=== PATIENT | male | born 1960 | race African-American/Black ===

== ENCOUNTER 2018-10-17 09:13 | Observation (INO) | payer BC ==
--- NOTE | 2018-10-12 13:49 | GHP ---
DATE OF ADMISSION: 10/17/2018 DATE OF SURGERY: He will be an a.m. admission for surgery on October 17, 2018. PROBLEM: Right knee degenerative arthritis. HISTORY OF PRESENT ILLNESS: The patient is a 58-year-old man admitted for a right total knee arthrop lasty. He had a right knee ACL reconstruction in 1989 secondary to a basketball injury. Over the pa st 5 years, he has had progressive increase in pain and swelling in his right knee. He has advanced degenerative arthritis with significant varus deformity. The knee is very painful and it limits his activities. He is admitted for a right total knee arthroplasty. PAST MEDICAL HISTORY: He developed a pulmonary embolism in 2007, after lumbar spine surgery. He has an inferior vena caval filter. No history of heart disease, stents, hepatitis, MRSA staph infection s, or bleeding problems. He has sleep apnea and uses a CPAP machine. CURRENT MEDICATIONS: None. DRUG ALLERGIES: None. LATEX ALLERGY: None. SOCIAL HISTORY: The patient is . He does not smoke cigarettes. Occasionally drinks alcohol. He works in sales. FAMILY HISTORY: Positive for cancer. PHYSICAL EXAMINATION: VITAL SIGNS: Height 6 feet, weight 262 pounds. BMI 35.5. EYES: Conjunctiva e and sclerae are clear. Pupils round and reactive. MOUTH: Good oral hygiene. No loose teeth. CH EST: Clear. HEART: Regular rhythm. No murmurs. EXTREMITIES: Pertinent findings are limited to h is right knee. He has a medial incision in the supracondylar region, a lateral incision in the supra condylar region, and an anterior medial incision. A small effusion is present. He lacks 10 degrees of full extension and flexes to 105 degrees. His ligaments are stable. He has varus alignment. IMPRESSION ON ADMISSION: 1. Right knee advanced degenerative arthritis. Status post ACL reconstruction. 2. History of pulmonary embolism in 2007. PLAN: He will undergo a right total knee arthroplasty. The surgery has been described to him, inclu ding the risks, complications, expectations, and recovery time. I have stressed the importance of po stoperative physical therapy. I have advised him that about 85% of people are very happy with the re sults of a total knee replacement. A small percentage of people are not happy because of persistent pain, knee stiffness, or persistent swelling. He is at a higher risk for DVT. He still has an indwe lling inferior vena caval filter. I will be treating him with Lovenox for 28 days after surgery. Scottie rodriguez his questions have been answered, and he consents to surgery. Copy requested to: SHANE Park /[id number]/MODL
[~2018-10-17 09:13] MED LIST: POVIDONE-IODINE 20 ML in SODIUM CL IRRIG SOLUTION 500 ML IRR ONE; ROPIVACAINE 0.2% 80 MG, EPINEPHrine 0.2 MG, KETOROLAC TROMETHAMINE 30 MG in SYRINGE 0 ML IU ONE; TRANEXAMIC ACID 2,000 MG in NS 100 ML IV ONE; TRANEXAMIC ACID 3,000 MG in NS (SYRINGE) 50 ML IRR ONE
[2018-10-17] MEDS ORDERED: ceFAZolin 2 GM/DEXTROSE 100 ML IV ONE (09:59)
[2018-10-17] MEDS ORDERED: ONDANSETRON 4 MG/2 ML VIAL IVP ONE (09:59)
[2018-10-17] MEDS ORDERED: ACETAMINOPHEN 325 MG TAB PO ONE (09:59)
[2018-10-17] MEDS ORDERED: GABAPENTIN 300 MG CAP PO ONE (09:59)
[2018-10-17] MEDS ORDERED: FAMOTIDINE 20 MG TAB PO ONE (09:59)
[2018-10-17] MEDS ORDERED: DEXAMETHASONE 4 MG/ML VIAL IVP ONE (09:59)
[2018-10-17] MEDS ORDERED: LR 1,000 ML IV ONE (10:25)
[2018-10-17] MEDS ORDERED: PROPOFOL/EMULSION 500 MG/50 ML BOTTLE IV ONE (10:56)
[2018-10-17] MEDS ORDERED: LIDOCAINE 2% 5 ML SDV ONE (10:57)
--- NOTE | 2018-10-17 11:56 | PDANEPAE ---
ANE History of Present Illness right TKA ANE Past Medical History - Cardiovascular History Hx Hypertension: No Hx Arrhythmias: No Hx Chest Pain: No Hx Coronary Artery / Peripheral Vascular Disease: No Hx CHF / Valvular Disease: No Hx Palpitations: No - Pulmonary History Hx COPD: No Hx Asthma/Reactive Airway Disease: No Hx Recent Upper Respiratory Infection: No Hx Oxygen in Use at Home: No Hx Sleep Apnea: Yes Sleep Apnea Screening Result - Last Documented: Positive Pulmonary History Comment: PE FOLLOWING 2ND BACK SURGERY - ANTICOAG [place] - 2007. SLEEP APNEA - W/CPAP - INSTRUCTED TO BRING CPAP - Neurologic History Hx Cerebrovascular Accident: No Hx Seizures: No Hx Dementia: No - Endocrine History Hx Diabetes: No - Renal History Hx Renal Disorders: No - Liver History Hx Hepatic Disorders: No - Neurological & Psychiatric Hx Hx Neurological and Psychiatric Disorders: No - Cancer History Hx Cancer: No - Congenital Disorder History Hx Congenital Disorders: No - GI History Hx Gastrointestinal Disorders: Yes Gastrointestinal History Comment: ACID REFLUX IN PAST - Other Health History Other Health History: NEG - Chronic Pain History Chronic Pain: Yes (R KNEE) - Surgical History Prior Surgeries: LUMBAR - DAVION LAMINECTOMY X2. ACL REPAIR ANE Review of Systems Review of Systems: - Exercise capacity METS (RN): 4 METS ANE Patient History - Allergies Allergies/Adverse Reactions: No Known Allergies Allergy (Verified 10/10/18 11:05) - Home Medications Home medications: home medication list seen and reviewed Home Medications: Herbals/Supplements -Info Only 10/11/18 [Last Taken 10/13/18] - NPO status NPO Since - Liquids (Date): 10/17/18 NPO Since - Liquids (Time): 07:30 NPO Since - Solids (Date): 10/16/18 NPO Since - Solids (Time): 20:30 - Anes Hx Anes Hx: no prior problems - Smoking Hx Smoking Status: Never smoked - Family Anes Hx Family Hx Anesthesia Complications: NEG ANE Labs/Vital Signs - Vital Signs Blood Pressure: 126/90 Heart Rate: 64 Respiratory Rate: 18 O2 Sat (%): 95 Height: 182.88 cm Weight: 117.934 kg ANE Physical Exam - Airway Neck exam: FROM Mallampati Score: Class 1 Mouth exam: normal dental/mouth exam - Pulmonary Pulmonary: no respiratory distress - Cardiovascular Cardiovascular: regular rate and rhythym - ASA Status ASA Status: III ANE Anesthesia Plan Anesthesia Plan: spinal Regional Anesthesia: continuous NB, adductor canal FNB
--- NOTE | 2018-10-17 12:00 | PDHPUP ---
History & Physical Update H&P update statement: This history and physical update is based on an assessment of the patient which was completed after admission or registration (within 24 hours), but prior to the surgery/procedure. H&P update: H&P reviewed & patient examined
[2018-10-17] MEDS ORDERED: TRANEXAMIC ACID 3,000 MG/50 ML BAG IRR ONE (12:38)
[2018-10-17] MEDS ORDERED: VANCOMYCIN 1 GM VIAL ONE (12:38)
[2018-10-17] MEDS ORDERED: ceFAZolin 1 GM/5 ML SYR ONE (12:43)
--- NOTE | 2018-10-17 12:45 | POSTANESTH ---
Post Anesthetic Evaluation Cardiovascular Status: Normal, Stable Respiratory Status: Normal, Stable Level of Consciousness/Mental Status: Can Participate in Eval, Mildly Sleepy, Arousable Pain Control: Adequate, Prn Tx Ordered Nausea/Vomiting Control: Adequate, Prn Tx Ordered Complications Possibly Related to Anesthesia: None Noted
[2018-10-17] MEDS ORDERED: MIDAZOLAM 2 MG/2 ML VIAL ONE (12:47)
[2018-10-17] MEDS ORDERED: BUPIVACAINE/DEXTROSE 7.5MG/ML 2 ML SPINAL AMP SP ONE (12:48)
[2018-10-17] MEDS ORDERED: MIDAZOLAM 2 MG/2 ML VIAL IVP ONE (12:49)
[2018-10-17] MEDS ORDERED: ONDANSETRON 4 MG/2 ML VIAL ONE (13:22)
[2018-10-17] MEDS ORDERED: fentaNYL 100 MCG/2 ML INJ ONE ×4 (13:22→16:14)
[2018-10-17] MEDS ORDERED: DEXAMETHASONE 4 MG/ML VIAL ONE (13:22)
[2018-10-17] MEDS ORDERED: ROPIVACAINE HCL 150 MG/30 ML INJ ONE (13:28)
[2018-10-17] MEDS ORDERED: oxyCODONE IR 5 MG TAB PO PRN ×2 (14:03→15:21)
[2018-10-17] MEDS ORDERED: ACETAMINOPHEN 500 MG TAB PO PRN ×2 (14:03→15:21)
[2018-10-17] MEDS ORDERED: fentaNYL 100 MCG/2 ML INJ IVP PRN (14:03)
[2018-10-17] MEDS ORDERED: METOCLOPRAMIDE 10 MG/2 ML VIAL IVP PRN ×3 (14:03→15:39)
[2018-10-17] MEDS ORDERED: ONDANSETRON 4 MG/2 ML VIAL IVP PRN ×3 (14:03→15:39)
[2018-10-17] MEDS ORDERED: ALBUTEROL 3 ML DEYVIAL IH PRN ×2 (14:03→15:21)
[2018-10-17] MEDS ORDERED: LR 500 ML IV PRN ×2 (14:03→15:21)
[2018-10-17] MEDS ORDERED: NALOXONE HCL 0.4 MG/ML INJ IVP PRN ×2 (14:03→15:21)
[2018-10-17] MEDS ORDERED: PROMETHAZINE HCL 25 MG/ML INJ IVP PRN ×3 (14:03→15:39)
[2018-10-17] MEDS ORDERED: HYDROCODONE/APAP 5/325 TAB PO PRN ×2 (14:03→15:21)
[2018-10-17] MEDS ORDERED: HYDROmorphONE/DILAUDID 2 MG/ML INJ ONE ×2 (14:30→16:04)
[2018-10-17] MEDS ORDERED: HYDROmorphONE/DILAUDID 2 MG/ML INJ IVP PRN (15:21)
--- NOTE | 2018-10-17 15:26 | POSTOPPROG ---
Post Op Note Date of Operation: 10/17/18 Surgeon: Rory Beltrán Recycling Assistant: Beau Anesthesiologist: Katty Anesthesia: GET(General Endotracheal) Post-op Diagnosis: 1. Right knee severe degenerative arthritis.2. Right knee retained hardw Procedure: 1. Right total knee arthroplasty. 2. Hardware removal from the right knee. Inf/Abcess present in the surg proc area at time of surgery?: No EBL: 50-100 (Adductor canal block in PACU with indwelling catheter.)
[2018-10-17] MEDS ORDERED: DIPHENOXYLATE/ATROPINE LOMOTIL 1 TAB PO PRN (15:39)
[2018-10-17] MEDS ORDERED: POLYETHYLENE GLYCOL 3350 17 GM PKT PO PRN (15:39)
[2018-10-17] MEDS ORDERED: diphenhydrAMINE 25 MG CAP PO PRN (15:39)
[2018-10-17] MEDS ORDERED: CYCLOBENZAPRINE 10 MG TAB PO PRN (15:39)
[2018-10-17] MEDS ORDERED: MAGNESIUM HYDROXIDE 30 ML UDCUP PO PRN (15:39)
[2018-10-17] MEDS ORDERED: TEMAZEPAM 15 MG CAP PO PRN (15:39)
[2018-10-17] MEDS ORDERED: NS 500 ML IV PRN (15:39)
[2018-10-17] MEDS ORDERED: traMADol 50 MG TAB PO PRN (15:39)
[2018-10-17] MEDS ORDERED: LACTULOSE 20 GM/30 ML UDCUP PO PRN (15:39)
[2018-10-17] MEDS ORDERED: BISACODYL 10 MG SUPP PR PRN (15:39)
[2018-10-17] MEDS ORDERED: ONDANSETRON DISINTEGRATING 4 MG TAB PO PRN (15:39)
[2018-10-17] MEDS ORDERED: PROMETHAZINE HCL 25 MG SUPPR PR PRN (15:39)
[2018-10-17] MEDS ORDERED: LR 1,000 ML IV SCH (16:00)
[2018-10-17] MEDS: fentaNYL 100 MCG/2 ML INJ IVP PRN ×2 (16:17→16:25)
[2018-10-17] MEDS: HYDROmorphONE/DILAUDID 2 MG/ML INJ IVP PRN ×4 (16:36→17:09)
--- NOTE | 2018-10-17 17:01 | GOP ---
DATE OF OPERATION: 10/17/2018 SURGEON: Rory Beltrán MD CONCRETE POURING SUPERVISOR: Zan Ortiz, [facility], and Efra Tran, PAC ANESTHESIA: Attempted spinal anesthesia, followed by general anesthesia and an adductor canal block. PREOPERATIVE DIAGNOSIS: 1. Right knee severe degenerative arthritis. 2. Right knee retained hardware, secondary to anterior cruciate ligament reconstruction in 1989. POSTOPERATIVE DIAGNOSIS: 1. Right knee severe degenerative arthritis. 2. Right knee retained hardware, secondary to anterior cruciate ligament reconstruction in 1989. PROCEDURE PERFORMED: 1. Right knee total knee arthroplasty, cemented, Mariscal and Nephew Journey II, posterior stabilized. 2. Hardware removal from the right tibia. FINDINGS: DESCRIPTION OF PROCEDURE: The patient was given 2 g of IV Ancef preoperatively within 60 minutes of surgery. He also received 2000 mg of IV tranexamic acid preoperatively. He was placed on the operat ing room table and Dr. Alaniz attempted a spinal anesthetic. This was unsuccessful. He was placed supine and given general anesthesia. A Angulo catheter was not used. He wore a MUNA stocking and SCD on the nonoperative leg. A bolster was placed under the right hip to prevent excessive external rot ation. He had a very bulky muscular heavy leg. His right lower extremity was prepped with ChloraPre p from the upper thigh tourniquet to the tips of the toes. It was draped free using sterile sheets, stockinette, and Ioban plastic adhesive drape. The lower leg was wrapped with a compressive Coban. His leg was exsanguinated with elevation and a 6-inch compressive wrap, and the pneumatic tourniquet was inflated to 300 mmHg. The [employer] Organization time-out was performed to verify the correct patient identity and the c orrect surgical side and site. The [place] time-out was also performed. The DeMayo leg holding device was sterilely attached to the operating room table and used throughout the procedure to help position the knee. The patient had a pre-existing medial incision that was abo ut 4 inches long. I incorporated that in a medial parapatellar surgical incision. Subcutaneous tiss ues were sharply divided and hemostasis was obtained using electrocautery. The capsule and synovium were opened in medial parapatellar fashion. There was some distal scarring from his previous open pr ocedure. Very extensive degenerative changes were present in all 3 compartments. He had a very bulk y leg with a lot of deformity and a lot of scar tissue. This made exposure difficult. I exposed the anteromedial cortex of the tibia. I used a rongeur and was able to locate the head of the ACL fixat ion screw in the tibia. This was removed. The medial capsule and periosteum were elevated off the r im of the medial tibial plateau all the way around to the posteromedial corner. I released his media l collateral ligament enough to balance the medial side of the knee. In order to improve exposure, the patella was prepared first. The original thickness of the patella was measured. He had a lot of osteophyte formation around the periphery of the patella. The osteoph ytes were removed with a rongeur. I cut a flat surface on the back of the patella. He was sized for a 41 mm round resurfacing component. I removed enough bone from the patella, such that the remainin g bone, plus the thickness of the patellar component recreated the original thickness of the patella. The composite thickness was 25 mm. The intramedullary alignment guide system was used to set up the distal femoral cut. The distal femu r was cut in 5 degrees of valgus. Because of a 10 degree preoperative flexion contracture, I made a +2 mm cut on the distal femur. The sizing jig was used to determine proper femoral sizing. He was a true size 8 without a shift. The 5-in-1 cutting block was applied, and the anterior and posterior c ondylar cuts and chamfer cuts were made. The final jig was used to remove the central portion of the distal femur to accommodate the posterior stabilized femoral component. I removed the osteophytes f rom around the periphery of the femoral condyles. I was careful to determine proper rotation by refe rencing off Whitesides line and other bony landmarks. Each cut was checked for accuracy. The femur was sized for a size 8 posterior stabilized component. Next, the tibia was prepared. The proximal tibial cut was made using the extramedullary alignment gu lucy system. The cut was made in a few degrees of posterior slope. I was careful to achieve proper v arus valgus alignment and proper rotation. The posterior compartment was cleared of meniscal remnant s. Large osteophytes were removed. Were removed from the back of his femoral condyles. Both the fl exion and extension gaps were tight. I went ahead and cut 2 additional millimeters off the proximal tibia. At this point, the flexion and extension gaps were equal and balanced. Tibia was sized for a size 7 component. With the trial components in place, I selected an [address] abilized tibial insert. The knee came to full extension and flexed to 125 degrees. His collateral l igaments were stable and balanced in 90 degrees of flexion and 5 degrees of flexion. The trial mendez lar button was applied, and patellar tracking was checked. Tracking was excellent without digital pr essure. 40 mL of the joint anesthetic cocktail was injected into the posterior capsule, the quadriceps muscle and tendon areas, and the subcutaneous tissues around the skin edges. The surfaces were prepared for cementing. They were carefully cleaned with the pulsating lavage irri gation and thoroughly dried. The CarboJet device was used to blow dry the cancellous surfaces. A do uble batch of high viscosity methylmethacrylate cement with 2 g of powdered vancomycin added was mixe d. While it was still in a doughy state, all 3 components were cemented in place. Excess cement was removed before it hardened. The 11 mm trial tibial insert was re-tried and was the proper thickness . The actual component was inserted and locked into place. His knee was thoroughly irrigated 1 stephanie l time with a dilute Betadine solution. The tourniquet was deflated and the total tourniquet time was 1 hour and 27 minutes. Tourniquet time was longer than usual because of the difficult exposure. It was also difficult getting proper soft tissue balance. The knee was irrigated was 50 cc of tranexamic acid solution. The vastus medialis portion of the extensor mechanism was repaired with several interrupted figure-of -eight #2 FiberWire sutures. The capsule and synovium were closed first with multiple interrupted fi [id number]-[id number] 0 PDS sutures, followed by a running #2 barbed Ethicon Stratafix PDO suture. The subcu taneous tissues were closed with a running 0 barbed Ethicon Stratafix Monoderm suture. The skin was closed with a running 3-0 barbed Ethicon Stratafix Monoderm subcuticular suture. The skin was sealed with half-inch Steri-Strips. The wound was covered with a large sterile Mepilex waterproof dressing and a 6-inch compressive wrap. A long-leg MUNA stocking and SCD were applied. I applied followed by the cooling device. The patient wore a stocking and SCD on the opposite leg during the procedure. The sacral Mepilex dressing was applied. I used a size 8 cemented Mariscal and Nephew Oxinium posterior stabilized femoral component, a size 7 ce mented tibial base plate, an 11 mm posterior stabilized tibial insert, and a 41 mm cemented round all -polyethylene resurfacing patellar component. The estimated blood loss following deflation of the tourniquet was about 100 cc. The sponge and needle count was correct on 2 occasions. He was awakened from anesthesia, transferred to his hospital [facility], and taken to PACU in satisfactor y condition. There were no recognized intraoperative complications. In the PACU for additional post operative pain control, Dr. Alaniz performed an adductor canal block with an indwelling catheter. The patient has a previous history of pulmonary embolism. He will be treated as a high risk and will receive Lovenox daily for 28 days following surgery. This increases the risk for postoperative knee bleeding. Zan Ortiz and Loc Tran acted as surgical assistants. Their assistance was a medical necess ity for safe completion of the procedure. Copy requested to: Dr. Perico Damon, [place] /[id number]/MODL
[2018-10-17] MEDS ORDERED: LABETALOL HCL 20 MG/4 ML INJ IVP ONE ×2 (17:18→18:00)
[2018-10-17] MEDS ORDERED: LABETALOL HCL 5 MG/ML 20 ML MDV ONE (17:22)
--- NOTE | 2018-10-17 18:32 | CPEKG ---
Test Reason : OPEN Blood Pressure : / mmHG Vent. Rate : 088 BPM Atrial Rate : 090 BPM P-R Int : 200 ms QRS Dur : 151 ms QT Int : 407 ms P-R-T Axes : -13 017 149 degrees QTc Int : 493 ms Sinus rhythm Left bundle branch block Confirmed by Lindsay Reyes ([id number]) on 10/17/2018 6:31:13 PM Referred By: Confirmed By:Lindsay Reyes
[2018-10-17] MEDS: SENNOSIDES/DOCUSATE SODIUM TAB PO SCH (19:54)
[2018-10-17] MEDS: oxyCODONE IR 5 MG TAB PO PRN ×2 (19:54→23:30)
[2018-10-17] MEDS: FAMOTIDINE 20 MG TAB PO SCH (19:54)
[2018-10-17] MEDS: KETOROLAC 15 MG/1 ML SDV IVP SCH ×2 (20:01→23:30)
[2018-10-17] MEDS: ACETAMINOPHEN 325 MG TAB PO SCH ×2 (20:01→23:30)
[2018-10-17] MEDS: ceFAZolin 2 GM/DEXTROSE 100 ML IV SCH (20:55)
[2018-10-18] MEDS: oxyCODONE IR 5 MG TAB PO PRN ×3 (00:26→08:47)
[2018-10-18] MEDS: ceFAZolin 2 GM/DEXTROSE 100 ML IV SCH (04:46)
[2018-10-18] MEDS: ACETAMINOPHEN 325 MG TAB PO SCH ×2 (04:50→12:46)
[2018-10-18] MEDS: KETOROLAC 15 MG/1 ML SDV IVP SCH ×2 (04:51→12:45)
--- NOTE | 2018-10-18 07:20 | SOAPPROG ---
SOAP Progress Note Assessment/Plan: Assessment: POD #1. Awake, alert, afebrile. Dressing clean and dry. Mild pain. H/H ok. VSS. Post op films ok. Plan: PT OT today. D/c to home later today. 10/18/18 07:18 Objective: Vital Signs Temp Pulse Resp BP Pulse Ox 36.6 C 80 18 135/74 H 96 10/18/18 04:00 10/18/18 04:00 10/18/18 04:00 10/18/18 04:00 10/18/18 04:00 Laboratory Results 10/18/18 04:43 10/17/18 10/18/18 10/19/18 05:59 05:59 05:59 Intake Total 2340 Output Total 900 Balance 1440 ICD10 Worksheet Patient Problems: Problems Problem Status Onset Osteoarthritis of right knee Acute
--- NOTE | 2018-10-18 08:44 | GDS ---
ADMISSION DIAGNOSIS: Severe right knee osteoarthritis. DISCHARGE DIAGNOSIS: Severe right knee osteoarthritis. OPERATIONS PERFORMED: Right total knee arthroplasty. COMPLICATIONS: None. CONDITION ON DISCHARGE: Improved. DESCRIPTION OF HOSPITAL COURSE: The patient was admitted to the hospital on the day of surgery. His admission white blood cell count was 5.77. His hemoglobin was 14.2 and hematocrit was 44.3. The under a failed attempt at a Marcaine spinal, he received general anesthesia and underwent a ri ght total knee arthroplasty. A Angulo catheter was not used. He was treated with multimodal DVT prop hylaxis including MUNA stockings, SCDs, and early mobilization. On the 1st postoperative day, the patient's H and H were 12.1 and 38.0. He did not require any blood transfusion. He was seen by Physical therapy and made good progress with ambulation and knee range of motion exercises. By the time of discharge, the patient was independent with his walker, afebrile, and his dressing was clean and dry. DISPOSITION: The patient is discharged to his home. He will go directly to outpatient pulmonary physical therapist apy. He has a prescription for Lovenox x28 days. He will be treated more aggressively because of hi s previous history of DVT, PE. The patient also has prescriptions for tramadol, Celebrex, and oxycod one. MUNA stockings x1 week. Zero Knee while in bed. He has a followup appointment in the office on October 30. He is to call the office sooner if he has any problems or questions. Copy requested to: PCP lorelei listed in [employer] /[id number]/MODL
[2018-10-18] MEDS: SENNOSIDES/DOCUSATE SODIUM TAB PO SCH (08:47)
[2018-10-18] MEDS: FAMOTIDINE 20 MG TAB PO SCH (08:49)
[2018-10-18] MEDS ORDERED: ENOXAPARIN 40 MG/0.4 ML SYR SC SCH (09:00)
[2018-10-18] MEDS ORDERED: FERROUS SULFATE 140 MG TAB.ER PO SCH (09:00)
[2018-10-18] MEDS ORDERED: ROPIVACAINE HCL 150 MG/30 ML INJ ONE (09:15)
--- NOTE | 2018-10-18 11:24 | ASMTLACE ---
LACE Length of stay for Answers: 2 days current admission Acuity / Level of Answers: Yes Care: Did the patient have an inpatient admission? Comorbidities - select Answers: Opioid dependence all that apply / Chronic pain # of Emergency department Answers: 0 visits in the last 6 months Score: 9 Date Signed: 10/18/2018 11:23 AM Electronically Signed By:ANTONI Rodriguez
--- NOTE | 2018-10-18 11:25 | ASMTCMCOM ---
CM Note CM Note Notes: Pt had planned OA of knee, resides with spouse. PT rec home/outpatient. rec outpatient PT. No CM d/c needs identified. Date Signed: 10/18/2018 11:25 AM Electronically Signed By:ANTONI Rodriguez
[2018-10-18] MEDS ORDERED: LIPID EMULSION 20% 100 ML IV PRN (11:37)
--- NOTE | 2018-10-18 11:42 | PDPAINCON ---
Pain Management Consultation Patient referred by : Jerel - Subjective Pain is: under control (Pt states block wore off around 2 am last night. Could feel noticeable difference in pain, especially with movement. Pt doing well otherwise and pleased with care.) Activity: able to ambulate (with walker), participating in PT - Objective Technique: continuous peripheral nerve block Site: femoral (Adductor canal) Catheter site: clean, dry, intact, no erythema/edema/exudate Sensory and motor exam: block has resolved, no apparent ill effects Vital signs: stable - Assessment/Plan Assessment/Plan: other (Block wore off at around 2 am. Bolused AC catheter with 30 cc 0.5% ropivicaine and removed catheter. Pt overall pleased with care. )
[2018-10-18 12:17] VITALS: BP 144/78
== END 2018-10-18 15:04 | disposition home or self-care (01) ==
LOC: F3N 09:13 → INTOOBSV 09:13 → F3N 19:21
PROVIDERS: ADMIT Orthopaedic Surgery; ATTEND Orthopaedic Surgery
PROC: 0QPG04Z Removal of Internal Fixation Device from Right Tibia, Open Approach (ICD-10-PCS; 2018-10-17)
PROC: 0SRC0J9 Replacement of Right Knee Joint with Synthetic Substitute, Cemented, Open Approach (ICD-10-PCS; principal; 2018-10-17 11:15)
DX: M17.11 Unilateral primary osteoarthritis, right knee (principal); M21.161 Varus deformity, not elsewhere classified, right knee; G47.33 Obstructive sleep apnea (adult) (pediatric); E66.01 Morbid (severe) obesity due to excess calories; Z86.711 Personal history of pulmonary embolism; Z98.890 Other specified postprocedural states; Z87.828 Personal history of other (healed) physical injury and trauma
CPT/HCPCS: 27447; 73560; 77073; 93005; 97110; 97116; 97161; 97165; 97535; G0378; C1713; J0171; J0690; J1100; J1170; J1650; J1885; J2250; J2405; J2704; J2795; J3010; J3370

== ENCOUNTER 2018-12-20 08:36 | Day surgery (SDC) | payer BC ==
--- NOTE | 2018-12-14 10:29 | GHP ---
He will be an outpatient at [facility] on Thursday December 20, 2018. PROBLEM: Status post right total knee arthroplasty with failure to regain flexion. HISTORY OF PRESENT ILLNESS: The patient is a 58-year-old man on whom I did a right total knee arthro plasty on October 17, 2018. He has failed to regain satisfactory knee flexion with physical therapy . He is admitted for closed manipulation of his right total knee. There are no changes in the rest of his history and Physical. PHYSICAL EXAMINATION: HEART: Regular rhythm. No murmurs. LUNGS: Clear. EXTREMITIES: Exam of hi s knee shows his wound is healed. Good alignment. Moderate residual swelling. He has full extensio n and about 90 degrees of flexion. He has a fairly soft endpoint. IMPRESSION ON ADMISSION: 1. Eight weeks status post right total knee arthroplasty with postoperative stiffness. 2. History of pulmonary embolism in 2007. PLAN: He will undergo closed manipulation of his right total knee. The surgery has been described t o him, including the risks, complications, expectations, and recovery time. I have advised him of th e small risk of fracture of a bone or rupture of a tendon or muscle. All his questions have been ans wered. I have also offered him the option of just continuing physical therapy. He consents to surge ry. Copy requested to: Maria Gu[place]upe [place] /[id number]/MODL
[2018-12-20] MEDS ORDERED: ACETAMINOPHEN 500 MG TAB PO ONE (08:49)
[2018-12-20] MEDS ORDERED: LR 1,000 ML IV ONE (08:49)
[2018-12-20] MEDS ORDERED: LIDOCAINE 1% 2 ML INJ ID PRN (09:03)
[2018-12-20] MEDS ORDERED: BUPIVACAINE/EPI 0.5% 30 ML SDV ONE (09:31)
--- NOTE | 2018-12-20 11:16 | PDANEPAE ---
ANE History of Present Illness s/p R TKA s/f manipulation under anesthesia ANE Past Medical History - Cardiovascular History Hx Hypertension: No Hx Arrhythmias: No Hx Chest Pain: No Hx Coronary Artery / Peripheral Vascular Disease: No Hx CHF / Valvular Disease: No Hx Palpitations: No Cardiovascular History Comment: DVT- PE 2007 - Pulmonary History Hx COPD: No Hx Asthma/Reactive Airway Disease: No Hx Recent Upper Respiratory Infection: No Hx Oxygen in Use at Home: No Hx Sleep Apnea: Yes Sleep Apnea Screening Result - Last Documented: Positive Pulmonary History Comment: SLEEP APNEA - W/CPAP - INSTRUCTED TO BRING CPAP - Neurologic History Hx Cerebrovascular Accident: No Hx Seizures: No Hx Dementia: No - Endocrine History Hx Diabetes: No - Renal History Hx Renal Disorders: No - Liver History Hx Hepatic Disorders: No - Neurological & Psychiatric Hx Hx Neurological and Psychiatric Disorders: No - Cancer History Hx Cancer: No - Congenital Disorder History Hx Congenital Disorders: No - GI History Hx Gastrointestinal Disorders: Yes Gastrointestinal History Comment: ACID REFLUX IN PAST - Other Health History Other Health History: none - Chronic Pain History Chronic Pain: No - Surgical History Prior Surgeries: LUMBAR - DAVION LAMINECTOMY X2. ACL REPAIR. 10/17/18 TKA ANE Review of Systems Review of Systems: - Exercise capacity METS (RN): 4 METS ANE Patient History - Allergies Allergies/Adverse Reactions: No Known Allergies Allergy (Verified 12/19/18 14:59) - Home Medications Home medications: home medication list seen and reviewed Home Medications: Acetaminophen [Tylenol 325mg (*)] 12/19/18 [Last Taken 2 Days Ago ~12/18/18] oxyCODONE IR [Oxycodone Ir (*)] 12/19/18 [Last Taken 12/16/18] - NPO status NPO Status: no food or drink >8 hours NPO Since - Liquids (Date): 12/20/18 NPO Since - Liquids (Time): 08:00 NPO Since - Solids (Date): 12/19/18 NPO Since - Solids (Time): 18:30 - Smoking Hx Smoking Status: Never smoked - Alcohol Use Alcohol Use: Occasionally - Family Anes Hx Family Anes Hx: none Family Hx Anesthesia Complications: none ANE Labs/Vital Signs - Vital Signs Blood Pressure: 128/91 Heart Rate: 73 Respiratory Rate: 16 O2 Sat (%): 94 Height: 182.88 cm Weight: 114.305 kg ANE Physical Exam - Airway Neck exam: FROM Mallampati Score: Class 1 Mouth exam: normal dental/mouth exam - Pulmonary Pulmonary: no respiratory distress - Cardiovascular Cardiovascular: regular rate and rhythym - ASA Status ASA Status: II ANE Anesthesia Plan Anesthesia Plan: GA with mask (propofol only)
[2018-12-20] MEDS ORDERED: PROPOFOL 200 MG/20 ML VIAL ONE (11:17)
[2018-12-20] MEDS ORDERED: LIDOCAINE 2% 100 MG/5 ML SYR ONE (11:21)
[2018-12-20] MEDS ORDERED: fentaNYL 100 MCG/2 ML INJ ONE ×2 (11:38→11:58)
[2018-12-20] MEDS ORDERED: MEPERIDINE 25 MG/0.5 ML AMP IVP PRN (11:39)
[2018-12-20] MEDS ORDERED: HYDROCODONE/APAP 5/325 TAB PO PRN (11:39)
[2018-12-20] MEDS ORDERED: METOCLOPRAMIDE 10 MG/2 ML VIAL IVP PRN (11:39)
[2018-12-20] MEDS: fentaNYL 100 MCG/2 ML INJ IVP PRN ×3 (11:39→11:59)
[2018-12-20] MEDS ORDERED: ONDANSETRON 4 MG/2 ML VIAL IVP PRN (11:39)
[2018-12-20] MEDS ORDERED: LR 500 ML IV PRN (11:39)
[2018-12-20] MEDS ORDERED: PROMETHAZINE HCL 25 MG/ML INJ IVP PRN (11:39)
[2018-12-20] MEDS ORDERED: PHENYLEPHRINE HCL 100 MCG/ML SYR IVP PRN (11:39)
[2018-12-20] MEDS ORDERED: NALOXONE HCL 0.4 MG/ML INJ IVP PRN (11:39)
[2018-12-20] MEDS ORDERED: ALBUTEROL 3 ML DEYVIAL IH PRN (11:39)
[2018-12-20] MEDS ORDERED: DEXAMETHASONE 4 MG/ML VIAL IVP PRN (11:39)
[2018-12-20] MEDS ORDERED: LABETALOL HCL 5 MG/ML 20 ML MDV IVP PRN (11:39)
--- NOTE | 2018-12-20 11:41 | POSTANESTH ---
Post Anesthetic Evaluation Cardiovascular Status: Normal, Stable, Tx Hyper/Hypo-tension (Hypertension) Level of Consciousness/Mental Status: Can Participate in Eval, Mildly Sleepy, Arousable Pain Control: Inadeq, Add Tx Required Nausea/Vomiting Control: Adequate, Prn Tx Ordered Complications Possibly Related to Anesthesia: None Noted
--- NOTE | 2018-12-20 11:43 | POSTOPPROG ---
Post Op Note Date of Operation: 12/20/18 Surgeon: Rory Beltrán Anesthesiologist: Vaughn Ji Anesthesia: IV Sedation Post-op Diagnosis: Status post right total knee arthroplasty with postoperative stiffness. Procedure: Closed manipulation of right total knee arthroplasty. Inf/Abcess present in the surg proc area at time of surgery?: No
[2018-12-20] MEDS ORDERED: oxyCODONE IR 5 MG TAB ONE ×2 (11:49→12:27)
[2018-12-20] MEDS: oxyCODONE IR 5 MG TAB PO PRN ×2 (11:53→12:27)
--- NOTE | 2018-12-20 12:06 | GOP ---
DATE OF OPERATION: 12/20/2018 SURGEON: Rory Beltrán MD PREOPERATIVE DIAGNOSIS: Status post right total knee arthroplasty with postoperative stiffness. POSTOPERATIVE DIAGNOSIS: Status post right total knee arthroplasty with postoperative stiffness. PROCEDURE PERFORMED: Closed manipulation of right total knee arthroplasty. FINDINGS: DESCRIPTION OF PROCEDURE: The patient was brought to the operating room in his [facility]. A t nehemias-out procedure was performed to verify the correct patient identity and the correct surgical side and site. Dr. Ji administered IV sedation anesthesia with propofol. When he was adequately anest hetized I have manipulated his knee. He was stuck at about 80 or 85 degrees of flexion. With very f irm pressure, I was able to manipulate the knee back to 100 or 115 degrees. He flexed to about 100 o r 105 degrees with just gravity. At the conclusion of the manipulation, I checked his collateral ligaments and they were stable. He was awakened from anesthesia and taken to PACU in satisfactory condition. There were no recognize d intraoperative complications. /[id number]/MODL
[2018-12-20 14:23] VITALS: BP 152/88
== END 2018-12-20 14:22 | disposition home or self-care (01) ==
LOC: FSGY 08:36
PROVIDERS: ATTEND Orthopaedic Surgery
PROC: 0SSCXZZ Reposition Right Knee Joint, External Approach (ICD-10-PCS; principal; 2018-12-20 11:00)
DX: M25.661 Stiffness of right knee, not elsewhere classified (principal); Z96.651 Presence of right artificial knee joint; G47.33 Obstructive sleep apnea (adult) (pediatric); Z86.718 Personal history of other venous thrombosis and embolism
CPT/HCPCS: J2001; J2270; J2704; J3010